=== PATIENT | male | born 1985 | race Caucasian/White ===

== ENCOUNTER 2021-05-07 11:54 | Inpatient (IN) | payer OTHER ==
[~2021-05-07] VITALS: Ht 172.7 cm; Wt 72.5 kg
[2021-05-07 12:52] LABS: BASOPHILS % (AUTO) 0.7 % (0.0-2.0); EOSINOPHILS % (AUTO) 1.1 % (1.0-6.0); HEMATOCRIT 41.6 % (41-53); HEMOGLOBIN 13.5 g/dL (13.5-17.5); LYMPHOCYTES # (AUTO) 2.1 K/uL (1.0-4.8); LYMPHOCYTES % (AUTO) 25.6 % (22.0-44.0); MEAN CORPUSCULAR HEMOGLOBIN 27.2 pg (26.0-34.0); MEAN CORPUSCULAR HGB CONC 32.6 G/dL (31.0-37.0); MEAN CORPUSCULAR VOLUME 83 fL (80-100); MONOCYTES # (AUTO) 0.6 K/uL (0.1-1.0); MONOCYTES % (AUTO) 7.4 % (2.0-9.0); NEUTROPHILS # (AUTO) 5.3 K/uL (1.8-7.7); NEUTROPHILS % (AUTO) 65.2 % (40.0-70.0); PLATELET COUNT (AUTO) 193 K/uL (150-450); RED BLOOD CELL COUNT(AUTO) 4.99 MIL/uL (4.50-5.90); RED CELL DISTRIBUTION WIDTH 13.8 % (11.5-14.5)
[2021-05-07 12:57] LABS: ANION GAP 6 mmol/L (8-16); CALCIUM, TOTAL 8.5 mg/dL (8.8-10.5); CARBON DIOXIDE 30 mmol/L (22-29); CHLORIDE 101 mmol/L (98-107); CREATININE 0.81 mg/dL (0.60-1.30); GLOMERULAR FILTR. RATE CALC > 60 mL/min (>60); GLUCOSE,RANDOM 97 mg/dL (70-110); POTASSIUM 4.1 mmol/L (3.5-5.1); SODIUM SERUM 137 mmol/L (136-145); UREA NITROGEN, BLOOD 12 mg/dL (7-18)
[2021-05-07 13:03] LABS: ALANINE AMINOTRANSFERASE 178 U/L (12-78); ALBUMIN 3.4 g/dL (3.4-5.0); ALKALINE PHOSPHATASE 93 U/L (46-116); ASPARTATE AMINOTRANSFERASE 86 U/L (15-37); BILIRUBIN,TOTAL 0.7 mg/dL (0.1-1.0); TOTAL PROTEIN, SERUM 7.6 g/dL (6.4-8.2)
[2021-05-07 14:51] LABS: COVID AG,FIA SOURCE NASOPHARYNGEAL
[2021-05-07] MEDS ORDERED: MAG HYDROX/AL HYDROX/SIMETH ES 30 ML SUSPENSION UDCUP PO PRN (20:30)
[2021-05-07] MEDS ORDERED: IPRATROPIUM BROMIDE 0.5 MG/2.5 ML NEB SOLUTION NEB PRN (20:30)
[2021-05-07] MEDS ORDERED: ALBUTEROL SULFATE 2.5 MG/0.5 ML NEB SOLUTION NEB PRN (20:30)
[2021-05-07] MEDS ORDERED: LOPERAMIDE HCL 2 MG/15 ML SUSPENSION UDCUP PO PRN (20:30)
[2021-05-07] MEDS ORDERED: DICYCLOMINE HCL 10 MG CAPSULE PO PRN (20:30)
[2021-05-07] MEDS ORDERED: BACLOFEN 10 MG TABLET PO PRN (20:30)
[2021-05-07] MEDS ORDERED: PROMETHAZINE HCL 25 MG TABLET PO PRN (20:30)
[2021-05-07] MEDS ORDERED: ONDANSETRON HCL 4 MG/2 ML VIAL IVP PRN (20:30)
[2021-05-07] MEDS ORDERED: IBUPROFEN 600 MG TABLET PO PRN (20:30)
[2021-05-07] MEDS ORDERED: ACETAMINOPHEN 325 MG TABLET PO PRN ×2 (20:30)
[2021-05-07] MEDS ORDERED: BISACODYL 10 MG RECTAL RECTAL SUPPOSITORY PR PRN (20:30)
[2021-05-07] MEDS ORDERED: MAGNESIUM HYDROXIDE SUSPENSION 30 ML UDCUP PO PRN (20:30)
[2021-05-07 21:33] VITALS: BP 122/70
[2021-05-07] MEDS: SODIUM CHLORIDE 0.45% 1,000 ML IV SCH (23:07)
[2021-05-07] MEDS: DOCUSATE SODIUM 100 MG CAPSULE PO SCH (23:07)
[2021-05-07] MEDS: HEPARIN SODIUM,PORCINE 5,000 UNITS/ML VIAL SQ SCH (23:07)
[2021-05-08 04:59] VITALS: BP 117/73
[2021-05-08 06:34] LABS: BASOPHILS % (AUTO) 0.7 % (0.0-2.0); EOSINOPHILS % (AUTO) 2.6 % (1.0-6.0); HEMATOCRIT 42.4 % (41-53); HEMOGLOBIN 13.9 g/dL (13.5-17.5); LYMPHOCYTES # (AUTO) 2.9 K/uL (1.0-4.8); LYMPHOCYTES % (AUTO) 35.3 % (22.0-44.0); MEAN CORPUSCULAR HEMOGLOBIN 27.4 pg (26.0-34.0); MEAN CORPUSCULAR HGB CONC 32.9 G/dL (31.0-37.0); MEAN CORPUSCULAR VOLUME 84 fL (80-100); MONOCYTES # (AUTO) 0.7 K/uL (0.1-1.0); MONOCYTES % (AUTO) 8.4 % (2.0-9.0); NEUTROPHILS # (AUTO) 4.3 K/uL (1.8-7.7); PLATELET COUNT (AUTO) 213 K/uL (150-450); RED BLOOD CELL COUNT(AUTO) 5.08 MIL/uL (4.50-5.90); RED CELL DISTRIBUTION WIDTH 13.8 % (11.5-14.5)
[2021-05-08 07:30] LABS: ALANINE AMINOTRANSFERASE 164 U/L (12-78); ALBUMIN 3.2 g/dL (3.4-5.0); ALKALINE PHOSPHATASE 93 U/L (46-116); ANION GAP 5 mmol/L (8-16); ASPARTATE AMINOTRANSFERASE 72 U/L (15-37); BILIRUBIN,TOTAL 0.6 mg/dL (0.1-1.0); CALCIUM, TOTAL 8.3 mg/dL (8.8-10.5); CARBON DIOXIDE 28 mmol/L (22-29); CHLORIDE 100 mmol/L (98-107); CREATININE 0.92 mg/dL (0.60-1.30); GLOMERULAR FILTR. RATE CALC > 60 mL/min (>60); GLUCOSE,RANDOM 120 mg/dL (70-110); POTASSIUM 4.1 mmol/L (3.5-5.1); SODIUM SERUM 133 mmol/L (136-145); TOTAL PROTEIN, SERUM 7.6 g/dL (6.4-8.2); UREA NITROGEN, BLOOD 14 mg/dL (7-18)
[2021-05-08] MEDS: HEPARIN SODIUM,PORCINE 5,000 UNITS/ML VIAL SQ SCH ×2 (07:51→16:05)
[2021-05-08] MEDS: DOCUSATE SODIUM 100 MG CAPSULE PO SCH ×2 (07:51→20:32)
[2021-05-08 08:20] VITALS: BP 115/82
[2021-05-08] MEDS: HydrOXYzine PAMOATE 50 MG CAPSULE PO PRN (09:13)
[2021-05-08] MEDS: SODIUM CHLORIDE 0.45% 1,000 ML IV SCH ×2 (10:23→22:26)
[2021-05-08] MEDS: ZOLPIDEM TARTRATE 5 MG TABLET PO PRN (20:32)
[2021-05-08 21:35] VITALS: BP 102/50
[2021-05-08 23:40] VITALS: BP_SYST 58; BP_SYST 98; BP_DIAS 47; BP_DIAS 74
[2021-05-09] MEDS: HEPARIN SODIUM,PORCINE 5,000 UNITS/ML VIAL SQ SCH ×4 (00:03→23:21)
[2021-05-09 04:05] VITALS: BP 104/57
[2021-05-09 08:23] VITALS: BP 112/59
[2021-05-09] MEDS: DOCUSATE SODIUM 100 MG CAPSULE PO SCH ×2 (08:41→20:15)
[2021-05-09 11:13] VITALS: BP 116/75
[2021-05-09] MEDS: SODIUM CHLORIDE 0.45% 1,000 ML IV SCH (12:07)
[2021-05-09 15:44] VITALS: BP 103/59
[2021-05-09] MEDS: ZOLPIDEM TARTRATE 5 MG TABLET PO PRN (20:15)
[2021-05-09 20:45] VITALS: BP 114/63
[2021-05-09] MEDS: TraZODone HCL 50 MG TABLET PO PRN (23:24)
[2021-05-10 05:32] VITALS: BP 106/70
[2021-05-10 08:11] VITALS: BP 128/72
[2021-05-10] MEDS: HydrOXYzine PAMOATE 50 MG CAPSULE PO PRN ×2 (08:12→21:19)
[2021-05-10] MEDS: HEPARIN SODIUM,PORCINE 5,000 UNITS/ML VIAL SQ SCH ×3 (08:51→23:21)
[2021-05-10] MEDS: DOCUSATE SODIUM 100 MG CAPSULE PO SCH ×2 (08:51→19:36)
[2021-05-10] MEDS: LORazepam 1 MG TABLET PO PRN ×2 (08:51→19:36)
[2021-05-10] MEDS: CloNIDine HCL 0.1 MG TABLET PO PRN (10:09)
[2021-05-10 15:44] VITALS: BP 119/69
[2021-05-10] MEDS: ZOLPIDEM TARTRATE 5 MG TABLET PO PRN (19:36)
[2021-05-10 20:20] VITALS: BP 103/60
[2021-05-10] MEDS: TraZODone HCL 50 MG TABLET PO PRN (21:01)
[2021-05-10] MEDS ORDERED: LORazepam 1 MG TABLET PO ONE (22:00)
[2021-05-11] MEDS: LORazepam 1 MG TABLET PO PRN (01:02)
[2021-05-11] MEDS: CloNIDine HCL 0.1 MG TABLET PO PRN (01:02)
[2021-05-11 07:56] VITALS: BP 141/73
[2021-05-11] MEDS: DOCUSATE SODIUM 100 MG CAPSULE PO SCH ×2 (08:57→20:15)
[2021-05-11] MEDS: HEPARIN SODIUM,PORCINE 5,000 UNITS/ML VIAL SQ SCH ×2 (08:57→16:13)
[2021-05-11 15:41] VITALS: BP 116/67
[2021-05-11] MEDS: ZOLPIDEM TARTRATE 5 MG TABLET PO PRN (20:16)
[2021-05-11] MEDS: TraZODone HCL 50 MG TABLET PO PRN (20:16)
[2021-05-11 20:20] VITALS: BP 118/73
[2021-05-12 05:45] VITALS: BP 110/59
[2021-05-12 07:33] VITALS: BP 112/79
[2021-05-12] MEDS: DOCUSATE SODIUM 100 MG CAPSULE PO SCH ×2 (08:42→20:01)
[2021-05-12] MEDS: HEPARIN SODIUM,PORCINE 5,000 UNITS/ML VIAL SQ SCH ×4 (08:42→23:04)
[2021-05-12 15:48] VITALS: BP 120/74
[2021-05-12] MEDS: TraZODone HCL 50 MG TABLET PO PRN ×2 (20:01→23:04)
[2021-05-12] MEDS: ZOLPIDEM TARTRATE 5 MG TABLET PO PRN (20:01)
[2021-05-12 20:15] VITALS: BP 127/70
[2021-05-15 15:07] LABS: HEPATITIS C AB (EIA) >11.0 s/co ratio (0.0-0.9); HEPATITIS C RT-PCR,QNT 7540000 IU/mL
== END 2021-05-13 06:32 | DRG 641 ==
LOC: EMS 11:56 → 6S 17:14
PROVIDERS: ADMIT Hospitalist; ATTEND Hospitalist
DX: E87.1 Hypo-osmolality and hyponatremia (principal); F10.239 Alcohol dependence with withdrawal, unspecified; F11.13 Opioid abuse with withdrawal; R74.8 Abnormal levels of other serum enzymes; F41.9 Anxiety disorder, unspecified; Z20.822 Contact with and (suspected) exposure to COVID-19
CPT/HCPCS: 80053; 80074; 85025; 87522; 99285; J1644; 36415-L1; 36415-TC; J7030; Z7502; Z7610